=== PATIENT | female | born 1930 | race Two or more races ===

== ENCOUNTER 2016-08-17 16:04 | Inpatient (IN) | payer OTHER ==
[~2016-08-17] VITALS: Ht 175.3 cm; Wt 75.0 kg
[2016-08-17 17:14] LABS: Basophils # (auto) 0 uL; Basophils % (auto) 0.4 % (0.0-2.0); Eosinophils # (auto) 0.1 uL; Eosinophils % (auto) 1.6 % (0.0-7.0); Hematocrit 42.8 % (36.0-46.0); Hemoglobin 13.6 g/dL (12.2-16.2); Lymphocytes # (auto) 2.1 uL; Lymphocytes % (auto) 30.3 % (10.0-50.0); Mean Corpuscular Hemoglobin 29.6 pg (28.0-32.0); Mean Corpuscular Hgb Conc. 31.9 g/dL (32.0-36.0); Mean Corpuscular Volume 92.8 fL (80.0-100.0); Mean Platelet Volume 9.2 fL (7.4-10.4); Monocytes # (auto) 0.7 uL; Monocytes % (auto) 10.2 % (0.0-12.0); Neutrophils % (auto) 57.5 % (37.0-80.0); Platelet Count (auto) 211 10^3/uL (140-450); Red Cell Distribution Width 13.7 % (11.6-16.0); White Blood Cell 6.9 10^3/uL (4.4-10.8)
[2016-08-17 17:33] LABS: Albumin 3.6 g/dL (3.4-5.0); BUN/Creatinine Ratio 13.5; Calcium 8.6 mg/dL (8.5-10.1); Potassium 3.5 mmol/L (3.5-5.1)
[2016-08-17 17:36] LABS: Bilirubin, Total 0.9 mg/dL (0.2-1.0); Total Protein 7.3 g/dL (6.4-8.2)
[2016-08-17] MEDS ORDERED: SODIUM CHLORIDE 0.9% 1,000 ML IVB ONE (20:11)
[2016-08-17 21:13] LABS: INR 1.12 (0.9-1.15); Partial Thromboplastin Time 25.6 sec (22.64-33.71); Prothrombin Time 11.5 sec (9.37-12.3)
[2016-08-17 22:23] LABS: Urine Bilirubin Negative (Negative); Urine Blood Negative /uL (Negative); Urine Color Yellow (Yellow); Urine Glucose Normal (Normal); Urine Ketone Negative (Negative); Urine Nitrite Negative (Negative); Urine RBC 1 /hpf (0 - 4); Urine Urobilinogen Normal (Negative)
[2016-08-17] MEDS: SODIUM CHLORIDE 0.9% 1,000 ML IV SCH (23:01)
[2016-08-17] MEDS ORDERED: ACETAMINOPHEN 500 MG TAB PO PRN (23:15)
[2016-08-18 00:40] VITALS: BP 160/67
[2016-08-18] MEDS: SODIUM CHLORIDE 0.9% 1,000 ML IV SCH (04:46)
[2016-08-18 05:00] VITALS: BP 145/62
[2016-08-18 06:16] LABS: Basophils # (auto) 0 uL; Basophils % (auto) 0.4 % (0.0-2.0); Eosinophils # (auto) 0.1 uL; Eosinophils % (auto) 2.1 % (0.0-7.0); Hematocrit 37.6 % (36.0-46.0); Hemoglobin 12.1 g/dL (12.2-16.2); Lymphocytes # (auto) 2.4 uL; Lymphocytes % (auto) 34.2 % (10.0-50.0); Mean Corpuscular Hemoglobin 30.1 pg (28.0-32.0); Mean Corpuscular Volume 93.9 fL (80.0-100.0); Mean Platelet Volume 9.5 fL (7.4-10.4); Monocytes # (auto) 0.9 uL; Monocytes % (auto) 13.2 % (0.0-12.0); Neutrophils # (auto) 3.6 uL; Neutrophils % (auto) 50.1 % (37.0-80.0); Platelet Count (auto) 178 10^3/uL (140-450); Red Cell Distribution Width 13.7 % (11.6-16.0); White Blood Cell 7.1 10^3/uL (4.4-10.8)
[2016-08-18 06:55] LABS: BUN/Creatinine Ratio 14.8; Calcium 8.6 mg/dL (8.5-10.1); Potassium 3.6 mmol/L (3.5-5.1); Total Protein 6.2 g/dL (6.4-8.2)
[2016-08-18 09:00] VITALS: BP 113/52
[2016-08-18 13:00] VITALS: BP 137/60
[2016-08-18 14:44] VITALS: BP 137/60
== END 2016-08-18 15:49 | disposition home or self-care (01) | DRG 71 ==
LOC: EDBD 16:04 → ER 16:10 → OVERFLOW 16:11 → WEST WING 08-18 00:17
PROVIDERS: ADMIT Family Medicine; ATTEND Family Medicine
DX: I67.9 Cerebrovascular disease, unspecified (principal); R44.3 Hallucinations, unspecified; F03.90 Unspecified dementia, unspecified severity, without behavioral disturbance, psychotic disturbance, mood disturbance, and anxiety; I10 Essential (primary) hypertension; W19.XXXA Unspecified fall, initial encounter; Y93.89 Activity, other specified; Y92.510 Bank as the place of occurrence of the external cause; Y99.8 Other external cause status
CPT/HCPCS: 36415; 70450; 71010; 80053; 81001; 82962; 83735; 84484; 85025; 85610; 85730; 93005; 94761; 96360; 96361

== ENCOUNTER 2017-08-22 21:21 | Inpatient (IN) | payer OTHER ==
[~2017-08-22] VITALS: Ht 33 cm; Wt 63.1 kg
[2017-08-22] MEDS ORDERED: MORPHINE SULF INJ 2 MG/ML SYRINGE 1ML IV PRN (21:45)
[2017-08-22] MEDS ORDERED: NITROGLYCERIN 0.4 MG SL TAB SL PRN (21:45)
[2017-08-22 21:46] VITALS: BP 126/58
[2017-08-22] MEDS ORDERED: SODIUM CHLORIDE 0.9% 1,000 ML IV SCH (23:46)
[2017-08-23] VITALS (7 sets, daily range): BP systolic 116–138; BP diastolic 55–97
[2017-08-23] MEDS ORDERED: ONDANSETRON HCL 4 MG/2 ML VIAL IV PRN
[2017-08-23] MEDS ORDERED: TEMAZEPAM 15 MG CAP PO PRN
[2017-08-23] MEDS ORDERED: ACETAMINOPHEN 325 MG TAB PO PRN
[2017-08-23] MEDS ORDERED: NITROGLYCERIN 0.4 MG SL TAB SL PRN
[2017-08-23] MEDS ORDERED: MORPHINE SULF INJ 2 MG/ML SYRINGE 1ML IV PRN
[2017-08-23] MEDS ORDERED: HYDROcodone-ACET 5/325MG TAB PO PRN
[2017-08-23 00:44] LABS: Basophils # (auto) 0.1 uL; Basophils % (auto) 0.7 % (0.0-2.0); Eosinophils # (auto) 0.2 uL; Eosinophils % (auto) 2.3 % (0.0-7.0); Hematocrit 39.1 % (36.0-46.0); Hemoglobin 12.9 g/dL (12.2-16.2); Lymphocytes # (auto) 2.6 uL; Lymphocytes % (auto) 34.3 % (10.0-50.0); Mean Corpuscular Hemoglobin 30.9 pg (28.0-32.0); Mean Corpuscular Hgb Conc. 33.1 g/dL (32.0-36.0); Mean Corpuscular Volume 93.5 fL (80.0-100.0); Monocytes # (auto) 0.9 uL; Monocytes % (auto) 12.2 % (0.0-12.0); Neutrophils # (auto) 3.8 uL; Neutrophils % (auto) 50.5 % (37.0-80.0); Platelet Count (auto) 228 10^3/uL (140-450); Red Blood Cells 4.18 10^6/uL (4.0-5.20); Red Cell Distribution Width 14.7 % (11.8-14.3); White Blood Cell 7.5 10^3/uL (4.4-10.8)
[2017-08-23 01:06] LABS: BUN/Creatinine Ratio 32.6; Potassium 3.9 mmol/L (3.5-5.1)
[2017-08-23 01:09] LABS: Bilirubin, Total 0.6 mg/dL (0.2-1.0); Total Protein 6.8 g/dL (6.4-8.2)
[2017-08-23] MEDS: ENOXAPARIN SOD 30 MG/0.3 ML SYRINGE SC SCH (10:21)
[2017-08-23] MEDS: TRIAMTERENE/HCTZ 75/50MG TABLET PO SCH (10:27)
[2017-08-24 05:21] VITALS: BP 109/55
[2017-08-24 06:31] LABS: Basophils # (auto) 0.1 uL; Basophils % (auto) 0.9 % (0.0-2.0); Eosinophils # (auto) 0.2 uL; Eosinophils % (auto) 3.5 % (0.0-7.0); Hematocrit 38.4 % (36.0-46.0); Hemoglobin 12.8 g/dL (12.2-16.2); Lymphocytes # (auto) 2.7 uL; Lymphocytes % (auto) 46.1 % (10.0-50.0); Mean Corpuscular Hemoglobin 31.1 pg (28.0-32.0); Mean Corpuscular Hgb Conc. 33.3 g/dL (32.0-36.0); Mean Corpuscular Volume 93.3 fL (80.0-100.0); Monocytes # (auto) 0.7 uL; Neutrophils # (auto) 2.3 uL; Neutrophils % (auto) 38.5 % (37.0-80.0); Nucleated Red Blood Cells % 0.1 %; Platelet Count (auto) 219 10^3/uL (140-450); Red Blood Cells 4.11 10^6/uL (4.0-5.20); Red Cell Distribution Width 14.8 % (11.8-14.3); White Blood Cell 5.9 10^3/uL (4.4-10.8)
[2017-08-24 06:40] LABS: Potassium 3.6 mmol/L (3.5-5.1)
[2017-08-24 06:48] LABS: Albumin 2.9 g/dL (3.4-5.0); BUN/Creatinine Ratio 28.1
[2017-08-24 06:51] LABS: Bilirubin, Total 0.7 mg/dL (0.2-1.0); Total Protein 6.7 g/dL (6.4-8.2)
[2017-08-24 07:30] VITALS: BP 121/51
[2017-08-24 09:00] VITALS: BP 121/57
[2017-08-24] MEDS: ENOXAPARIN SOD 30 MG/0.3 ML SYRINGE SC SCH (10:27)
[2017-08-24] MEDS: TRIAMTERENE/HCTZ 75/50MG TABLET PO SCH (10:27)
[2017-08-24 13:00] VITALS: BP 122/64
[2017-08-24] MEDS ORDERED: POTA10TA51 PO (13:59)
[2017-08-24] MEDS ORDERED: MAX7550T PO (13:59)
[2017-08-24 15:28] VITALS: BP 121/51
[2017-08-24] MEDS ORDERED: TUBERCULIN PPD 5 UNIT/0.1 ML ID ONE (16:15)
== END 2017-08-24 16:15 | disposition home or self-care (01) | DRG 70 ==
LOC: WEST WING 21:21 → TELE-WESTW 22:25 → WEST WING 08-23 14:17
PROVIDERS: ADMIT Family Medicine; ATTEND Family Medicine
DX: G93.41 Metabolic encephalopathy (principal); J18.9 Pneumonia, unspecified organism; N17.9 Acute kidney failure, unspecified; E44.1 Mild protein-calorie malnutrition; Z68.43 Body mass index [BMI] 50.0-59.9, adult; F03.90 Unspecified dementia, unspecified severity, without behavioral disturbance, psychotic disturbance, mood disturbance, and anxiety; I10 Essential (primary) hypertension; E87.6 Hypokalemia; Z60.2 Problems related to living alone
CPT/HCPCS: 36415; 71045; 80053; 85025; 87081; 97163

== ENCOUNTER 2017-10-14 14:47 | Inpatient (IN) | payer OTHER ==
[~2017-10-14] VITALS: Ht 175.3 cm; Wt 66.3 kg
[~2017-10-14 14:47] MED LIST: MAX7550T PO; POTA10TA51 PO
[2017-10-14 15:42] LABS: Basophils # (auto) 0 uL; Basophils % (auto) 0.1 % (0.0-2.0); Eosinophils # (auto) 0 uL; Eosinophils % (auto) 0.2 % (0.0-7.0); Hematocrit 42.1 % (36.0-46.0); Hemoglobin 13.9 g/dL (12.2-16.2); Lymphocytes # (auto) 1.7 uL; Lymphocytes % (auto) 9.3 % (10.0-50.0); Mean Corpuscular Hemoglobin 30.7 pg (28.0-32.0); Mean Corpuscular Volume 93.2 fL (80.0-100.0); Monocytes # (auto) 1.6 uL; Monocytes % (auto) 8.7 % (0.0-12.0); Neutrophils # (auto) 14.6 uL; Neutrophils % (auto) 81.7 % (37.0-80.0); Platelet Count (auto) 407 10^3/uL (140-450); Red Blood Cells 4.52 10^6/uL (4.0-5.20); Red Cell Distribution Width 14.8 % (11.8-14.3); White Blood Cell 17.9 10^3/uL (4.4-10.8)
[2017-10-14 15:59] LABS: BUN/Creatinine Ratio 20.8; Calcium 8.6 mg/dL (8.5-10.1); Potassium 4.1 mmol/L (3.5-5.1)
[2017-10-14 16:02] LABS: Bilirubin, Total 0.9 mg/dL (0.2-1.0); Total Protein 8.6 g/dL (6.4-8.2)
[2017-10-14 16:07] LABS: Albumin 2.5 g/dL (3.4-5.0)
[2017-10-14] MEDS ORDERED: SODIUM CHLORIDE 0.9% 1,000 ML IVB ONE (19:02)
[2017-10-14] MEDS ORDERED: cefTRIAXone 1GM/10ml IVPUSH 10 ML IV ONE (19:15)
[2017-10-14] MEDS ORDERED: AZITHROMYCIN 500MG/ 250ML 250 ML IV ONE (19:15)
[2017-10-14 19:32] LABS: INR 1.1 (0.9-1.15); Partial Thromboplastin Time 30.6 sec (22.64-33.71)
[2017-10-14 19:50] LABS: Magnesium 2.7 mg/dL (1.6-2.6)
[2017-10-14] MEDS ORDERED: LORazepam 2MG/ML-1ML VIAL IV ONE (20:15)
[2017-10-14] MEDS ORDERED: LORazepam 2MG/ML-1ML VIAL ONE (20:15)
[2017-10-14] MEDS ORDERED: SODIUM CHLORIDE 0.9% 1,000 ML IV SCH (21:03)
[2017-10-14] MEDS ORDERED: ACETAMINOPHEN 325 MG TAB PO PRN (21:15)
[2017-10-14] MEDS ORDERED: methylPREDNISolone SOD SUCC 125 MG/2 ML VL IV ONE (21:15)
[2017-10-14] MEDS ORDERED: ALBUTEROL SULF 2.5 MG/0.5ML(0.5%) NEB SOLN NEB PRN (21:15)
[2017-10-14] MEDS ORDERED: TEMAZEPAM 15 MG CAP PO PRN (21:15)
[2017-10-14] MEDS ORDERED: ONDANSETRON HCL 4 MG/2 ML VIAL IV PRN (21:15)
[2017-10-14] MEDS ORDERED: HYDROcodone-ACET 5/325MG TAB PO PRN (21:15)
[2017-10-14 21:41] VITALS: BP 136/62
[2017-10-14] MEDS: FAMOTIDINE 20 MG TAB PO SCH (21:59)
[2017-10-14] MEDS: SODIUM CHLORIDE 0.9% 1,000 ML IV SCH (22:18)
[2017-10-14 23:46] LABS: Urine Bacteria NONE SEEN /hpf (None Seen); Urine Blood 1+ /uL (Negative); Urine Hyaline Cast FEW /lpf (0 - 2); Urine Mucus FEW (None Seen); Urine Specific Gravity 1.017 (1.001-1.035); Urine WBC 2 /hpf (0 - 5)
[2017-10-15 00:30] VITALS: BP 115/59
[2017-10-15 06:31] LABS: Basophils # (auto) 0 uL; Eosinophils # (auto) 0 uL; Hematocrit 39.2 % (36.0-46.0); Hemoglobin 12.7 g/dL (12.2-16.2); Lymphocytes # (auto) 0.9 uL; Lymphocytes % (auto) 6.7 % (10.0-50.0); Mean Corpuscular Hemoglobin 30.7 pg (28.0-32.0); Mean Corpuscular Hgb Conc. 32.5 g/dL (32.0-36.0); Mean Corpuscular Volume 94.2 fL (80.0-100.0); Monocytes # (auto) 0.3 uL; Monocytes % (auto) 1.8 % (0.0-12.0); Neutrophils # (auto) 12.8 uL; Neutrophils % (auto) 91.5 % (37.0-80.0); Platelet Count (auto) 346 10^3/uL (140-450); Red Blood Cells 4.16 10^6/uL (4.0-5.20); Red Cell Distribution Width 14.9 % (11.8-14.3)
[2017-10-15 07:03] LABS: Albumin 2.1 g/dL (3.4-5.0); BUN/Creatinine Ratio 25.7; Calcium 8.2 mg/dL (8.5-10.1)
[2017-10-15 07:05] LABS: Bilirubin, Total 0.6 mg/dL (0.2-1.0); Total Protein 7.4 g/dL (6.4-8.2)
[2017-10-15 09:00] VITALS: BP 110/56
[2017-10-15] MEDS: ENOXAPARIN SOD 40 MG/0.4 ML SYRINGE SC SCH (09:20)
[2017-10-15] MEDS: FAMOTIDINE 20 MG TAB PO SCH ×2 (09:20→22:04)
[2017-10-15] MEDS: TRIAMTERENE/HCTZ 75/50MG TABLET PO SCH (09:21)
[2017-10-15] MEDS: SODIUM CHLORIDE 0.9% 1,000 ML IV SCH ×3 (11:20→22:45)
[2017-10-15 13:00] VITALS: BP 104/63
[2017-10-15] MEDS ORDERED: methylPREDNISolone SOD SUCC 125 MG/2 ML VL IV ONE (14:45)
[2017-10-15 17:14] VITALS: BP 140/54
[2017-10-15] MEDS ORDERED: cefTRIAXone 1GM/10ml IVPUSH 10 ML IV SCH (22:00)
[2017-10-15] MEDS ORDERED: AZITHROMYCIN 500MG/ 250ML 250 ML IV SCH (22:00)
[2017-10-16 05:00] VITALS: BP 133/63
[2017-10-16 08:00] VITALS: BP 110/56
[2017-10-16 09:00] VITALS: BP 111/58
[2017-10-16] MEDS: TRIAMTERENE/HCTZ 75/50MG TABLET PO SCH (09:20)
[2017-10-16] MEDS: FAMOTIDINE 20 MG TAB PO SCH (09:20)
[2017-10-16] MEDS: ENOXAPARIN SOD 40 MG/0.4 ML SYRINGE SC SCH (09:21)
[2017-10-16] MEDS ORDERED: methylPREDNISolone SOD SUCC 125 MG/2 ML VL IV SCH (10:00)
[2017-10-16 12:39] VITALS: BP 111/58
[2017-10-16 14:01] VITALS: BP 121/63
[2017-10-16 17:00] VITALS: BP 115/58
== END 2017-10-16 18:40 | disposition home or self-care (01) | DRG 871 ==
LOC: ER 14:47 → OVERFLOW 14:48 → EAST 10-15 00:26 → WEST WING 10-15 21:32
PROVIDERS: ADMIT Nurse Practitioner; ATTEND Family Medicine
DX: A41.9 Sepsis, unspecified organism (principal); J18.9 Pneumonia, unspecified organism; E44.0 Moderate protein-calorie malnutrition; J47.0 Bronchiectasis with acute lower respiratory infection; R06.03 Acute respiratory distress; G30.1 Alzheimer's disease with late onset; E86.0 Dehydration; F02.80 Dementia in other diseases classified elsewhere, unspecified severity, without behavioral disturbance, psychotic disturbance, mood disturbance, and anxiety; I12.9 Hypertensive chronic kidney disease with stage 1 through stage 4 chronic kidney disease, or unspecified chronic kidney disease; N18.3 Chronic kidney disease, stage 3 (moderate); R79.89 Other specified abnormal findings of blood chemistry; Z82.49 Family history of ischemic heart disease and other diseases of the circulatory system; Z68.21 Body mass index [BMI] 21.0-21.9, adult
CPT/HCPCS: 36415; 71045; 76705; 80053; 81001; 83605; 83735; 84484; 85025; 85610; 85730; 87040; 87081; 87804; 93005; 94761; 96365; 96375